=== PATIENT | male | born 1955 | race Caucasian/White ===

== ENCOUNTER 2020-05-22 07:53 | Emergency (ER) | payer BC ==
--- NOTE | 2020-05-22 08:12 | EDM.PDOC ---
ED HPI GENERAL MEDICAL PROBLEM - General Chief Complaint: Neuro Symptoms/Deficits Stated Complaint: WEAKNESS IN RT ARM AND LEG Time Seen by Provider: 05/22/20 08:00 Source of Information: Reports: Patient History Limitations: Reports: No Limitations - History of Present Illness INITIAL COMMENTS - FREE TEXT/NARRATIVE: Patient 64-year-old male patient presents to the ED with chief complaint of weakness felt in his right arm hand and lower extremity. He states he appreciated this after getting up this morning about 0500 hrs. No headache nausea or vomiting no visual acuity changes. He appreciated some weakness or difficulty trying to comb his hair as his hand would not work quite right. Appreciates some weakness on the right side of his leg and seems to list slightly to the left side with walking. No past history of cerebrovascular accident or heart arrhythmias. Currently on no blood thinners. He walked into the emergency room and gait appeared to be normal. He appreciates some mild right-sided facial numbness. Onset: Unknown/Unsure (Woke with symptoms this morning around 0500 hrs.) Duration: Hour(s):, Getting Worse (He feels his symptoms are mildly) Location: Reports: Face (Worse now than they were when he first got up this morning.), Upper Extremity, Right (Right upper extremity particularly his hand not quite obeying), Lower Extremity, Right ( what his brain would like him to do. Right lower extremity) Quality: Reports: Other (Mild right-sided facial) Severity: Mild (arm and leg weakness) Improves with: Reports: None Worsens with: Reports: None Context: Reports: Other (Spontaneous occurrence this morning). Denies: Activity, Exercise, Lifting, Sick Contact, Trauma Associated Symptoms: Reports: Malaise, Weakness. Denies: Confusion, Chest Pain, Cough, cough w sputum, Diaphoresis, Fever/Chills, Headaches, Loss of Appetite, Nausea/Vomiting, Rash, Seizure, Shortness of Breath, Syncope Treatments CAN DRAGGER: Reports: Other (see below) (As described above. None.) - Related Data Allergies Allergy/AdvReac Type Severity Reaction Status Date / Time No Known Allergies Allergy Verified 05/22/20 08:06 Home Meds: Home Meds Clopidogrel Bisulfate [Plavix] 75 mg PO DAILY #20 tablet 05/22/20 [Rx] Rosuvastatin [Crestor] 10 mg PO DAILY #30 tab 05/22/20 [Rx] Sildenafil [Viagra] 1 tab PO ASDIRECTED PRN 05/22/20 [History] Tamsulosin HCl [Flomax] 0.4 mg PO BID 05/22/20 [History] Testosterone 100 gr TOP ASDIRECTED 05/22/20 [History] Thyroid,Pork [[place] Thyroid] 90 mcg PO DAILY 05/22/20 [History] Past Medical History Genitourinary History: Reports: BPH (Tamsulosin was increased to 0.4 mg twice daily about 4 days ago takes 1 in the morning and 1 at bedtime.) - Past Surgical History GI Surgical History: Reports: Hernia, Inguinal (Right inguinal hernia repair in the past) Social & Family History - Tobacco Use Tobacco Use Status *Q: Never Tobacco User - Living Situation & Occupation Living situation: Reports: Occupation: Employed ([employer] ED ROS GENERAL - Review of Systems Review Of Systems: See Below Constitutional: Reports: Weakness (Very mild weakness right arm hand). Denies: Fever, Chills, Malaise, Fatigue ( and leg this morning), Night Sweats, Decreased Appetite, Weight Loss HEENT: Reports: Glasses Respiratory: Reports: No Symptoms Cardiovascular: Reports: No Symptoms. Denies: Chest Pain, Blood Pressure Problem, Claudication, Dyspnea on Exertion, Edema, Lightheadedness, Orthopnea Endocrine: Reports: No Symptoms, Fatigue GI/Abdominal: Reports: No Symptoms. Denies: Abdominal Pain, Constipation, Diarrhea : Reports: Frequency, Other Musculoskeletal: Reports: Back Pain ( Occasional joint pain knees hips low back), Joint Pain (Teary at x2. Known BPH.) Skin: Reports: No Symptoms Neurological: Reports: No Symptoms Psychiatric: Reports: No Symptoms Hematologic/Lymphatic: Reports: No Symptoms Immunologic: Reports: No Symptoms ED EXAM, NEURO - Physical Exam Exam: See Below Exam Limited By: No Limitations General Appearance: Alert, WD/WN, Anxious, Mild Distress, Other Eye Exam: Bilateral Eye: Normal Inspection, PERRL Ears: Normal TMs Throat/Mouth: Normal Inspection, Normal Lips, Normal Oropharynx, Other (Uvula is in the midline.) Head Exam: Atraumatic, Normocephalic Neck: Normal Inspection, Supple, Non-Tender, Full Range of Motion. No: Lymphadenopathy (L), Lymphadenopathy (R) Respiratory/Chest: No Respiratory Distress, Lungs Clear, Normal Breath Sounds, No Accessory Muscle Use, Chest Non-Tender Cardiovascular: Normal Peripheral Pulses, Regular Rate, Rhythm, No Edema, No Gallop, No Murmur, No Rub GI/Abdominal: Normal Bowel Sounds, Soft, Non-Tender, No Organomegaly, No Abnormal Bruit, No Mass, Pelvis Stable. No: Guarding, Rigid, Rebound Neurological: Alert, Normal Dorsiflexion, CN II-XII Intact, Normal Plantar Flexion, Normal Gait, Normal Reflexes, Oriented x 3, Other ( No pronator drift. Very mild weakness appreciated of the right biceps muscle. Has mild ataxia on [id number] assessments on the right side.) DTR: 1+: Bicep (R), Achilles (R), Achilles (L), 2+: Bicep (L), Patella (R), Patella (L) Back Exam: Normal Inspection, Full Range of Motion. No: CVA Tenderness (L), CVA Tenderness (R) Extremities: Normal Inspection, Normal Range of Motion, Non-Tender, No Pedal Edema, Normal Capillary Refill Psychiatric: Anxious Skin Exam: Warm, Dry, Intact, Normal Color, No Rash #1 Interpretation EKG Date: 05/22/20 Time: 08:15 Rhythm: Other (sinus tachycardia) Rate (Beats/Min): 108 [place]: Normal P-Wave: Enlarged (consider Lt atrial hypertrophy.) QRS: Normal ST-T: Normal QT: Prolonged (mildly prolonged.) Course - Vital Signs Last Recorded V/S: Last Vital Signs Temp 36.3 C 05/22/20 08:13 Pulse 90 05/22/20 11:04 Resp 13 05/22/20 11:04 BP 159/90 H 05/22/20 11:04 Pulse Ox 100 05/22/20 11:04 - Orders/Labs/Meds Labs: Laboratory Tests 05/22/20 05/22/20 05/22/20 Range/Units 07:58 08:00 08:00 WBC 5.22 (4.23-9.07) K/mm3 RBC 5.31 (4.63-6.08) M/mm3 Hgb 17.1 D (13.7-17.5) gm/dl Hct 46.9 (40.1-51.0) % MCV 88.3 D (79.0-92.2) fl MCH 32.2 (25.7-32.2) pg MCHC 36.5 H (32.2-35.5) g/dl RDW Std Deviation 41.9 (35.1-43.9) fL Plt Count 152 L (163-337) K/mm3 MPV 9.9 (9.4-12.3) fl Neut % (Auto) 46.2 (34.0-67.9) % Lymph % (Auto) 42.0 (21.8-53.1) % [place] % (Auto) 7.9 (5.3-12.2) % Eos % (Auto) 3.3 (0.8-7.0) Baso % (Auto) 0.6 (0.1-1.2) % Neut # (Auto) 2.42 (1.78-5.38) K/mm3 Lymph # (Auto) 2.19 (1.32-3.57) K/mm3 [place] # (Auto) 0.41 (0.30-0.82) K/mm3 Eos # (Auto) 0.17 (0.04-0.54) K/mm3 Baso # (Auto) 0.03 (0.01-0.08) K/mm3 PT (9.7-12.0) SECONDS INR APTT (21.7-31.4) SECONDS Sodium 141 (136-145) mEq/L Potassium 4.0 (3.5-5.1) mEq/L Chloride 104 (98-107) mEq/L Carbon Dioxide 26 (21-32) mEq/L Anion Gap 15.0 (5-15) BUN 23 H (7-18) mg/dL Creatinine 1.4 H (0.7-1.3) mg/dL Est Cr Clr Drug Dosing 54.01 mL/min Estimated GFR (MDRD) 51 (>60) mL/min BUN/Creatinine Ratio 16.4 (14-18) Glucose 179 H (80-115) mg/dL POC Glucose 183 H (80-115) mg/dL Calcium 9.3 (8.5-10.1) mg/dL Magnesium 1.9 (1.8-2.4) mg/dl Total Bilirubin 0.8 (0.2-1.0) mg/dL AST 20 (15-37) U/L ALT 31 (16-63) U/L Alkaline Phosphatase 62 (46-116) U/L Troponin I < 0.017 (0.00-0.056) ng/mL C-Reactive Protein <0.2 (<1.0) mg/dL Total Protein 7.6 (6.4-8.2) g/dl Albumin 4.0 (3.4-5.0) g/dl Globulin 3.6 gm/dL Albumin/Globulin Ratio 1.1 (1-2) Triglycerides (<150) mg/dL Cholesterol (<200) mg/dL LDL Cholesterol Direct (<100) mg/dL HDL Cholesterol (40-59) mg/dL SARS-CoV-2 RNA (DOM) (NEGATIVE) 05/22/20 05/22/20 05/22/20 Range/Units 08:00 08:03 09:00 WBC (4.23-9.07) K/mm3 RBC (4.63-6.08) M/mm3 Hgb (13.7-17.5) gm/dl Hct (40.1-51.0) % MCV (79.0-92.2) fl MCH (25.7-32.2) pg MCHC (32.2-35.5) g/dl RDW Std Deviation (35.1-43.9) fL Plt Count (163-337) K/mm3 MPV (9.4-12.3) fl Neut % (Auto) (34.0-67.9) % Lymph % (Auto) (21.8-53.1) % [place] % (Auto) (5.3-12.2) % Eos % (Auto) (0.8-7.0) Baso % (Auto) (0.1-1.2) % Neut # (Auto) (1.78-5.38) K/mm3 Lymph # (Auto) (1.32-3.57) K/mm3 [place] # (Auto) (0.30-0.82) K/mm3 Eos # (Auto) (0.04-0.54) K/mm3 Baso # (Auto) (0.01-0.08) K/mm3 PT 10.3 (9.7-12.0) SECONDS INR 0.96 APTT 27.5 (21.7-31.4) SECONDS Sodium (136-145) mEq/L Potassium (3.5-5.1) mEq/L Chloride (98-107) mEq/L Carbon Dioxide (21-32) mEq/L Anion Gap (5-15) BUN (7-18) mg/dL Creatinine (0.7-1.3) mg/dL Est Cr Clr Drug Dosing mL/min Estimated GFR (MDRD) (>60) mL/min BUN/Creatinine Ratio (14-18) Glucose (80-115) mg/dL POC Glucose (80-115) mg/dL Calcium (8.5-10.1) mg/dL Magnesium (1.8-2.4) mg/dl Total Bilirubin (0.2-1.0) mg/dL AST (15-37) U/L ALT (16-63) U/L Alkaline Phosphatase (46-116) U/L Troponin I (0.00-0.056) ng/mL C-Reactive Protein (<1.0) mg/dL Total Protein (6.4-8.2) g/dl Albumin (3.4-5.0) g/dl Globulin gm/dL Albumin/Globulin Ratio (1-2) Triglycerides 98 (<150) mg/dL Cholesterol 211 H (<200) mg/dL LDL Cholesterol Direct 138 H* (<100) mg/dL HDL Cholesterol 57.0 (40-59) mg/dL SARS-CoV-2 RNA (DOM) Negative (NEGATIVE) Meds: Medications Discontinued Medications Generic Name Dose Route Start Last Admin Trade Name Freq PRN Reason Stop Dose Admin Alteplase, Recombinant Confirm 05/22/20 08:28 05/22/20 11:01 Activase Administered 05/22/20 08:29 Not Given Dose 100 mg .ROUTE .STK-MED ONE Aspirin 324 mg 05/22/20 10:14 05/22/20 10:57 Aspirin PO 05/22/20 10:15 324 mg ONETIME ONE Administration Clopidogrel Bisulfate 75 mg 05/22/20 10:15 05/22/20 10:58 Plavix PO 05/22/20 10:16 75 mg ONETIME ONE Administration Sodium Chloride 100 mls @ 75 mls/hr 05/22/20 09:00 Normal Saline IV ASDIRECTED NABIL Iopamidol 100 ml 05/22/20 08:47 Isovue-370 (76%) IVPUSH 05/22/20 08:48 ONETIME ONE Sodium Chloride 10 ml 05/22/20 08:47 Saline Flush FLUSH ONETIME PRN IV FLUSH - Radiology Interpretation Free Text/Narrative:: 64-year-old male presents to the ED with very mild signs of Possible stroke. He states since he awoke at 0500 hrs. this morning he felt that his right hand was not cooperating or obeying his brain commands. Had difficulty combing his hair with at home this morning. No trouble swallowing. No visual acuity changes. Feels some numbness tingling and weakness in his right hand and arm. Feels on walking that there may be some weakness in his right upper extremity with him listing slightly to the left with walking. Symptoms are slowly getting worse according to the patient. Exam reveals mild ataxia on [id number]-[id number]-[id number] assessment on the right side. Clinically has slightly decreased strength in the right upper extremity as compared to the left. His NIH stroke scale is a 1 . Therefore symptoms at this time are very subtle and not incapacitating. Plan CT head to be done. - Re-Assessments/Exams Free Text/Narrative Re-Assessment/Exam: 05/22/20 08:25: CT head reveals small small hypodensities at the basal ganglia consistent with remote lacunar infarcts with no acute intra-axial or extra-axial hemorrhage appreciated.. No ventriculomegaly. Sinuses appear clear no air- fluid levels. Vasculature suggest increased attenuation to the left M1 segment worrisome for thrombosis or atherosclerotic disease. I did speak with neurologist at [facility] in [place]. It was his suggestion to proceed with CT angiogram of head and neck to make sure there is no thrombus that would benefit from interventional radiology. We both agree that his current symptoms are very mild and risks of thrombolytics at this time are felt to outweigh benefit. We will therefore proceed with CT angiogram of head and neck. Patient has been so advised. Blood pressure has come down to 149/86. Heart rate is 95. 05/22/20 09:50 CT angiogram of the neck has been completed. The right common carotid artery shows no stenosis and no dissection or occlusion. Right internal carotid artery no stenosis of the extracranial segment. There is no dissection or occlusion. Right external carotid artery similarly no occlusion or stenosis of the origin. Right vertebral artery no stenosis no dissection or occlusion. Left common carotid artery no stenosis no dissection or occlusion. Left internal carotid artery mild atherosclerotic disease at the proximal left internal carotid artery causing less than 50% stenosis. Left external carotid artery no occlusion or stenosis at the origin left vertebral artery no stenosis no dissection or occlusion. Bones show multilevel degenerative disc disease in the cervical spine. CT angiogram head is now available. The right internal carotid artery shows intracranial segment is patent with no significant stenosis or occlusion. No aneurysm. Right middle cerebral artery no occlusion or significant stenosis no aneurysm. Right anterior cerebral artery no occlusion or significant stenosis no aneurysm. Left internal carotid artery intracranial segment is patent with no significant stenosis no aneurysm left middle cerebral artery minimal atherosclerotic disease and irregularity at the proximal left M1 segment without significant stenosis. No occlusion or significant stenosis no aneurysm. In the posterior circulation there is no occlusion of the right vertebral artery or significant stenosis or aneurysm. Similarly left left vertebral artery shows no occlusion or significant stenosis or aneurysm the basilar artery shows no occlusion or significant stenosis or aneurysm. The right posterior cerebral artery no occlusion or significant stenosis or aneurysm and similar findings in the left posterior cerebral artery. Head shows multiple small hypodensities at the basal ganglia consistent with remote lacunar infarcts. Cerebral ventricles normal no ventriculomegaly paranasal sinuses are normal. Patient will therefore be placed on low-dose Crestor 10 mg once daily. Goal will be to reduce his LDL to less than 70. He will be placed on aspirin 325 mg twice daily with Plavix 75 mg once daily for the next 3 weeks and then continue aspirin 162 mg twice daily to prevent further stroke. 05/22/20 09:57 White count is 5.22 with 46.2% neutrophils on the auto differential. Hemoglobin is 17.1 with hematocrit of 46.9 suggesting mild hemoconcentration. Platelet counts 152,000 slightly low. PT is 10.3 with an INR of 0.96 and a PTT of 27.5. Sodium 141 with a potassium of 4.0 chloride 104 with a bicarb of 26. Anion gap is 15.0. BUN is 23 with a creatinine of 1.4 GFR is 51. Glucose 179 calcium 9.3 magnesium 1.9 total bilirubin is 0.8 AST is 20 with an ALT of 31 and alk phos days of 62 troponin I was less than 0.017 C- reactive protein less than 0.2 total protein 7.6 with an albumin fraction of 4.0 triglycerides normal at 98 total cholesterol elevated at 211 LDL cholesterol 138 HDL cholesterol 57.0 05/22/20 10:16 He will be given the initial dose of aspirin 324 mg p.o. now and Plavix 75 mg now. Prescription written for Crestor 10 mg once daily. Blood pressure seems to be under good control and with recent increase in his Flomax it has have some alpha blockade which will lower his pressure further. He will be on Plavix 75 mg daily for the next 3 weeks. He will be on 325 mg aspirin twice daily during that timeframe as well and after that it will be cut down to a half an aspirin or Halfprin 162 mg twice daily. Advised to follow-up with his primary care physician in approximately 6 weeks time. Of note his neurological symptoms have completely dissipated at this time making his diagnosis a transient ischemic attack. Advised that he should have carotid artery ultrasounds on a yearly basis. Departure - Departure Time of Disposition: 10:17 Disposition: Home, Self-Care 01 Condition: Fair Clinical Impression: TIA (transient ischemic attack), Hypercholesterolemia - Discharge Information *PRESCRIPTION DRUG MONITORING PROGRAM REVIEWED*: Not Applicable *COPY OF PRESCRIPTION DRUG MONITORING REPORT IN PATIENT JOHN: Not Applicable Prescriptions: Rosuvastatin [Crestor] 10 mg PO DAILY #30 tab Clopidogrel Bisulfate [Plavix] 75 mg PO DAILY #20 tablet Instructions: Transient Ischemic Attack, [id number] Referrals: PCP,Not In Area [Primary Care Provider] - Forms: ED Department Discharge, ED Return to Work/School Form Additional Instructions: Evaluation in the emergency room this morning in regards to acute development of neurological symptoms involving your right hand arm and leg with some weakness or numbness in your right hemiface as well this morning. Symptoms seem to be present when he awoke around 0500 hrs. this morning. He seemed to slowly progress and get a little more severe over the ensuing 2 hours. You were seen in the ED and a stroke alert was called. Immediate CT scan of the brain was carried out which did not show any bleeding in the brain but did suggest that there was an area of possible poor circulation to a branch of the left middle cerebral artery which would correlate with the right upper extremity weakness. Very minimal weakness was appreciated on examination of your right arm and you had a little bit of ataxia looking at the right [id number] exam. Subsequently CT angiogram of the head and neck has been performed and it does not show any significant blockage of any of the arteries in your brain or neck at this time. There is less than 50% occlusion of the carotid arteries which is normal for her age. It therefore appears that you have suffered a transient ischemic attack which was a miniature stroke likely due to a small piece of plaque breaking off from inside blood vessels on the left side of the neck or brain. This caused a transient blockage of blood flow to portions of your brain causing neurologic nonfocal symptoms. Subsequently this seems to have is resolved completely. In an effort to prevent a similar occurrence it is suggested that you take a full Mauro aspirin 325 mg twice daily for the next 3 weeks in combination with Plavix 75 mg once daily in the morning. First tablets were given in the ED today. You will need a second dose of aspirin later today. Plavix which should be started tomorrow morning. After 3 weeks you can cut down the aspirin to a half an aspirin which we call Halfprin 162 mg tablet twice daily and should remain on this medication. Also goal is to lower your total cholesterol which was 211 today with your LDL cholesterol being 130. The goal would be to lower your bad cholesterol or LDL cholesterol to less than 70 to try and prevent any further blockage of the vessels and further strokes in the future. Suggest starting medication Crestor 10 mg once daily. Suggest follow- up with your personal care physician within the next 4 weeks and to make sure your blood pressure stays under 135 on the top number and preferably 85 or less on the bottom number. You should have a carotid ultrasound done on a yearly basis to make sure there is no blockage development that would require or benefit from surgery. Sepsis Event Note (ED) - Focused Exam Vital Signs: Vital Signs Temp Pulse Resp BP Pulse Ox 05/22/20 11:04 90 13 159/90 H 100 05/22/20 08:13 36.3 C 124 H 16 170/90 H 99
[2020-05-22] MEDS ORDERED: Sodium Chloride 0.9% 10 ML Syringe FLUSH PRN (08:47)
[2020-05-22] MEDS ORDERED: Iopamidol 755 Mg/ML 100 ML Bottle IVPUSH ONE (08:47)
--- NOTE | 2020-05-22 08:50 | CT ---
Addendum created by Elliot Hernadez MD on 05/22/2020 9:19 AM Central Time ([place] & [place]): This report contains findings that may be critical to patient care. The findings were verbally communicated via telephone conference with KRISTINE VARGAS at 05/22/2020 9:19 AM [facility]. The findings were acknowledged and understood. Initial Report created on 05/22/2020 9:17 AM Central Time ([place] & [place]): PROCEDURE INFORMATION: Exam: CT Head Without Contrast Exam date and time: 05/22/2020 8:02 AM Age: 64 years old Clinical indication: Weakness, extremity; Right; Patient HX: RT arm/leg weakness x2 hours TECHNIQUE: Imaging protocol: Computed tomography of the head without contrast. Radiation optimization: All CT scans at this facility use at least one of these dose optimization techniques: automated exposure control; mA and/or kV adjustment per patient size (includes targeted exams where dose is matched to clinical indication); or iterative reconstruction. Other technique: STROKE PROTOCOL was implemented. COMPARISON: No relevant prior studies available. FINDINGS: Brain: Multiple small hypodensities at the basal ganglia consistent with remote lacunar infarctions. No acute intra-axial or extra-axial hemorrhage appreciated. Cerebral ventricles: No ventriculomegaly. Bones/joints: Unremarkable. No acute fracture. Paranasal sinuses: Visualized sinuses are unremarkable. No fluid levels. Mastoid air cells: Visualized mastoid air cells are well aerated. Vasculature: Increased attenuation to the left M1 segment worrisome for thrombosis or atherosclerotic disease. Soft tissues: Unremarkable. IMPRESSION: 1. Multiple small hypodensities at the basal ganglia consistent with remote lacunar infarctions. 2. No acute intra-axial or extra-axial hemorrhage appreciated. 3. Increased attenuation to the left M1 segment worrisome for thrombosis or atherosclerotic disease. ASSESSMENT: ASPECTS ([place] Stroke Program Early CT Score) is 10. COMMENTS: If the symptoms that lead to this examination persist or worsen, or there is concern for CVA (which may not manifest on CT for the first 24-48 hours), close interval follow-up MRI (or followup CT if the patient cannot undergo MRI evaluation) could provide additional information; only if clinically indicated. Thank you for allowing us to participate in the care of your patient. Dictated and Authenticated by: Elliot Hernadez MD 05/22/2020 9:17 AM Central Time ([place] & [place]) [facility]
--- NOTE | 2020-05-22 08:51 | CR ---
PROCEDURE INFORMATION: Exam: XR Chest, 1 View Exam date and time: 05/22/2020 8:08 AM Age: 64 years old Clinical indication: Other: CVA TECHNIQUE: Imaging protocol: XR of the chest Views: 1 view. COMPARISON: No relevant prior studies available. FINDINGS: Lungs: Unremarkable. No consolidation. Pleural space: Unremarkable. No pleural effusion. No pneumothorax. Heart/Mediastinum: Unremarkable. No cardiomegaly. Bones/joints: Unremarkable. IMPRESSION: No acute findings. Thank you for allowing us to participate in the care of your patient. Dictated and Authenticated by: Elliot Hernadez MD 05/22/2020 9:18 AM Central Time ([place] & [place]) [facility]
[2020-05-22] MEDS ORDERED: Sodium Chloride 0.9% 100 ML IV SCH (09:00)
[2020-05-22] MEDS ORDERED: Aspirin 81 MG Tab.Chew PO ONE (10:14)
[2020-05-22] MEDS ORDERED: Clopidogrel 75 MG Tab PO ONE (10:15)
--- NOTE | 2020-05-22 10:35 | CT ---
PROCEDURE INFORMATION: Exam: CT Angiography Neck Without And With Contrast Exam date and time: 05/22/2020 9:07 AM Age: 64 years old Clinical indication: Patient HX: RT arm / leg weakness TECHNIQUE: Imaging protocol: Computed tomographic angiography of the neck without and with intravenous contrast. 3D rendering (Not supervised by radiologist): MIP and/or 3D reconstructed images were created by the technologist. Radiation optimization: All CT scans at this facility use at least one of these dose optimization techniques: automated exposure control; mA and/or kV adjustment per patient size (includes targeted exams where dose is matched to clinical indication); or iterative reconstruction. Contrast material: ISOVUE 370; Contrast volume: 100 ml; Contrast route: INTRAVENOUS (IV); COMPARISON: No relevant prior studies available. FINDINGS: Right common carotid artery: No stenosis. No dissection or occlusion. Right internal carotid artery: No stenosis of the extracranial segment. No dissection or occlusion. Right external carotid artery: No occlusion or stenosis of the origin. Right vertebral artery: No stenosis. No dissection or occlusion. Left common carotid artery: No stenosis. No dissection or occlusion. Left internal carotid artery: Mild atherosclerotic disease at the proximal left internal carotid artery causing less than 50% stenosis. Left external carotid artery: No occlusion or stenosis of the origin. Left vertebral artery: No stenosis. No dissection or occlusion. Bones/joints: There is multilevel degenerative disc disease. Soft tissues: Normal. No significant soft tissue swelling. IMPRESSION: Mild atherosclerotic disease at the proximal left internal carotid artery causing less than 50% stenosis. REFERENCES: NASCET CRITERIA. The degree of internal carotid artery stenosis is based on NASCET criteria. Normal is no stenosis. Mild is less than 50% stenosis. Moderate is 50-69% stenosis. Severe is 70% to 99% stenosis. Total occlusion is no detectable patent lumen. Thank you for allowing us to participate in the care of your patient. Dictated and Authenticated by: Elliot Hernadez MD 05/22/2020 10:45 AM Central Time ([place] & [place]) [facility]
--- NOTE | 2020-05-22 10:41 | CT ---
PROCEDURE INFORMATION: Exam: CT Angiography Head Without And With Contrast Exam date and time: 05/22/2020 9:07 AM Age: 64 years old Clinical indication: Patient HX: RT sided weakness TECHNIQUE: Imaging protocol: Computed tomographic angiography of the head without and with intravenous contrast. 3D rendering (Not supervised by radiologist): MIP and/or 3D reconstructed images were created by the technologist. Radiation optimization: All CT scans at this facility use at least one of these dose optimization techniques: automated exposure control; mA and/or kV adjustment per patient size (includes targeted exams where dose is matched to clinical indication); or iterative reconstruction. Contrast material: ISOVUE 370; Contrast volume: 100 ml; Contrast route: INTRAVENOUS (IV); Other technique: STROKE PROTOCOL was implemented. COMPARISON: CT Head wo Cont 05/22/2020 8:02 AM FINDINGS: ANTERIOR CIRCULATION: Right internal carotid artery: Intracranial segment is patent with no significant stenosis or occlusion. No aneurysm. Right middle cerebral artery: No occlusion or significant stenosis. No aneurysm. Right anterior cerebral artery: No occlusion or significant stenosis. No aneurysm. Left internal carotid artery: Intracranial segment is patent with no significant stenosis. No aneurysm. Left middle cerebral artery: Minimal atherosclerotic disease and irregularity at the proximal left M1 segment without significant stenosis. Left anterior cerebral artery: No occlusion or significant stenosis. No aneurysm. POSTERIOR CIRCULATION: Right vertebral artery: No occlusion or significant stenosis. No aneurysm. Left vertebral artery: No occlusion or significant stenosis. No aneurysm. Basilar artery: No occlusion or significant stenosis. No aneurysm. Right posterior cerebral artery: No occlusion or significant stenosis. No aneurysm. Left posterior cerebral artery: No occlusion or significant stenosis. No aneurysm. HEAD: Brain: Multiple small hypodensities at the basal ganglia consistent with remote lacunar infarctions. Cerebral ventricles: Normal. No ventriculomegaly. Bones/joints: Unremarkable. No acute fracture. Paranasal sinuses: Visualized sinuses are normal. No fluid levels. Mastoid air cells: Visualized mastoids are normal. No mastoid effusion. Soft tissues: Unremarkable. IMPRESSION: 1. Multiple small hypodensities at the basal ganglia consistent with remote lacunar infarctions. 2. Minimal atherosclerotic disease and irregularity at the proximal left M1 segment without significant stenosis. ASSESSMENT: ASPECTS ([place] Stroke Program Early CT Score) is 10. Thank you for allowing us to participate in the care of your patient. Dictated and Authenticated by: Elliot Hernadez MD 05/22/2020 10:48 AM Central Time ([place] & [place]) [facility]
== END 2020-05-22 11:11 | disposition home or self-care (01) ==
LOC: JD.ED 07:53
DX: G45.9 Transient cerebral ischemic attack, unspecified (principal); E78.00 Pure hypercholesterolemia, unspecified; Z20.828 Contact with and (suspected) exposure to other viral communicable diseases; N40.0 Benign prostatic hyperplasia without lower urinary tract symptoms; Z79.899 Other long term (current) drug therapy
CPT/HCPCS: 36415; 70450; 70496; 70498; 71045; 80053; 82465; 82962; 83718; 83721; 83735; 84478; 84484; 85025; 85610; 85730; 86140; 87635; 93005; 99285; A9270; U0002

== ENCOUNTER 2020-08-26 20:54 | Emergency (ER) | payer BC ==
[2020-08-26] MEDS ORDERED: Sodium Chloride 0.9% 10 ML Syringe FLUSH PRN (21:36)
[2020-08-26] MEDS ORDERED: Ondansetron 4 MG/2 ML SDV IVPUSH ONE (21:36)
[2020-08-26] MEDS ORDERED: Sodium Chloride 0.9% 1,000 ML IV SCH (21:45)
--- NOTE | 2020-08-26 22:28 | EDM.PDOC ---
ED HPI GENERAL MEDICAL PROBLEM - General Chief Complaint: Gastrointestinal Problem Stated Complaint: NAUSEA/TEMP/HEARTBURN Time Seen by Provider: 08/26/20 21:25 Source of Information: Reports: Patient, RN Notes Reviewed - History of Present Illness INITIAL COMMENTS - FREE TEXT/NARRATIVE: 65 yr old male with onset of nausea, chills, mild heartburn type feeling up into chest, generalized myalgias this afternoon about 6 hrs ago. 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 No known covid exposure for either of them. He does not have pain into his back, shoulder or arm. No cough or difficulty breathing. Epigastric Pain Score (Numeric/FACES): 5 - Related Data Allergies Allergy/AdvReac Type Severity Reaction Status Date / Time No Known Allergies Allergy Verified 08/26/20 21:18 Home Meds: Home Meds Clopidogrel Bisulfate [Plavix] 75 mg PO DAILY #20 tablet 05/22/20 [Rx] Rosuvastatin [Crestor] 10 mg PO DAILY #30 tab 05/22/20 [Rx] Sildenafil [Viagra] 1 tab PO ASDIRECTED PRN 05/22/20 [History] Tamsulosin HCl [Flomax] 0.4 mg PO BID 05/22/20 [History] Testosterone 100 gr TOP ASDIRECTED 05/22/20 [History] Thyroid,Pork [[place] Thyroid] 90 mcg PO DAILY 05/22/20 [History] Past Medical History HEENT History: Reports: Impaired Vision Cardiovascular History: Reports: None Respiratory History: Reports: None Gastrointestinal History: Reports: None Genitourinary History: Reports: BPH Musculoskeletal History: Reports: None Neurological History: Reports: TIA Psychiatric History: Reports: None Endocrine/Metabolic History: Reports: Hypothyroidism Hematologic History: Reports: None Immunologic History: Reports: None Oncologic (Cancer) History: Reports: None Dermatologic History: Reports: None - Infectious Disease History Infectious Disease History: Reports: Chicken Pox, Mumps - Past Surgical History Head Surgeries/Procedures: Reports: None HEENT Surgical History: Reports: Adenoidectomy, Oral Surgery, Tonsillectomy GI Surgical History: Reports: Hernia, Inguinal Other Male Surgeries/Procedures: takes flomax BID for stream Musculoskeletal Surgical History: Reports: None Social & Family History - Family History Family Medical History: No Pertinent Family History HEENT: Reports: None Cardiac: Reports: None GI: Reports: None : Reports: None OBGYN: Reports: None Musculoskeletal: Reports: None Neurological: Reports: None Psychiatric: Reports: None Endocrine/Metabolic: Reports: Diabetes, type II Hematologic: Reports: None Immunologic: Reports: None Oncologic: Reports: Lung - Tobacco Use Tobacco Use Status *Q: Never Tobacco User Second Hand Smoke Exposure: No - Caffeine Use Caffeine Use: Reports: None - Recreational Drug Use Recreational Drug Use: No - Living Situation & Occupation Living situation: Reports: Occupation: Employed ([employer]) ED ROS GENERAL - Review of Systems Review Of Systems: See Below Constitutional: Reports: Fever, Chills HEENT: Reports: No Symptoms Respiratory: Denies: Shortness of Breath, Cough Cardiovascular: Reports: Chest Pain (mild pressure feeling lower mid chest) GI/Abdominal: Reports: Abdominal Pain (mild heart burn type discomfort upper mid abd), Nausea. Denies: Diarrhea, Vomiting Musculoskeletal: Denies: Shoulder Pain, Arm Pain, Back Pain Skin: Reports: No Symptoms Neurological: Reports: No Symptoms ED EXAM, GENERAL - Physical Exam Exam: See Below General Appearance: Alert Head: Atraumatic Neck: Supple Respiratory/Chest: No Respiratory Distress, Lungs Clear, Normal Breath Sounds Cardiovascular: Tachycardia GI/Abdominal: Soft, Tender (mild tenderness upper mid abd, lower abd soft and nontender). No: Guarding, Rebound Extremities: Normal Inspection. No: Pedal Edema, Leg Pain Neurological: Alert, Oriented, No Motor/Sensory Deficits Skin Exam: Warm, Dry, Normal Color, No Rash #1 Interpretation EKG Date: 08/26/20 Rhythm: Other (sinus tach) Rate (Beats/Min): 107 [place]: Normal P-Wave: Present QRS: Normal ST-T: Normal QT: Normal Course - Vital Signs Last Recorded V/S: Last Vital Signs Temp 98.2 F 08/26/20 23:06 Pulse 95 08/26/20 23:06 Resp 16 08/26/20 23:06 BP 136/88 08/26/20 23:06 Pulse Ox 100 08/26/20 23:06 - Orders/Labs/Meds Orders: Active Orders 24 hr Category Date Time Status Peripheral IV Insertion Adult [OM.PC] Stat Oth 08/26/20 21:35 Ordered Labs: Laboratory Tests 08/26/20 08/26/20 Range/Units 21:53 21:55 Troponin I < 0.017 (0.00-0.056) ng/mL SARS-CoV-2 RNA (DOM) Negative (NEGATIVE) Meds: Medications Discontinued Medications Generic Name Dose Route Start Last Admin Trade Name Freq PRN Reason Stop Dose Admin Al Hydroxide/Mg Hydroxide 30 0 ml 08/26/20 22:54 08/26/20 23:05 ml/ Lidocaine HCl 15 ml PO 08/26/20 22:55 45 ml ONETIME ONE Administration Sodium Chloride 1,000 mls @ 999 mls/hr 08/26/20 21:45 08/26/20 21:48 Normal Saline IV 999 mls/hr ONETIME NABIL Administration Ondansetron HCl 4 mg 08/26/20 21:36 08/26/20 21:47 Zofran IVPUSH 08/26/20 21:37 4 mg ONETIME ONE Administration Sodium Chloride 10 ml 08/26/20 21:36 08/26/20 21:48 Saline Flush FLUSH 10 ml ASDIRECTED PRN Administration Keep Vein Open - Re-Assessments/Exams Free Text/Narrative Re-Assessment/Exam: 08/26/20 23:11 EKG no acute changes. trop neg. covid neg. Discharge instr. as documented. Departure - Departure Time of Disposition: 22:55 Disposition: Home, Self-Care 01 Condition: Fair Clinical Impression: Viral syndrome, Atypical chest pain - Discharge Information Instructions: Nonspecific Chest Pain, Adult, Viral Illness, Adult Referrals: Delta Gill MD [Primary Care Provider] - Forms: ED Department Discharge Additional Instructions: Rest. Clear liquids until tomorrow afternoon, than very careful bland diet as tolerated. Your covid test was negative. However if your symptoms persist more than 2 or 3 days or if you develop cough or difficulty breathing get yourself retested. Follow up clinic as neeed. Return to ED as needed if symptoms worsening in any way. Sepsis Event Note (ED) - Evaluation Sepsis Screening Result: No Definite Risk - Focused Exam Vital Signs: Vital Signs Temp Pulse Resp BP Pulse Ox 08/26/20 23:06 98.2 F 95 16 136/88 100 08/26/20 21:15 99.6 F 111 H 16 153/87 H 96 - My Orders Last 24 Hours: My Active Orders 08/26/20 21:35 Peripheral IV Insertion Adult [OM.PC] Stat - Assessment/Plan Last 24 Hours: My Active Orders 08/26/20 21:35 Peripheral IV Insertion Adult [OM.PC] Stat
[2020-08-26] MEDS ORDERED: Alum Hydrox/Mag Hydrox/Simeth 30 ML, Lidocaine 2% 15 ML PO ONE ×2 (22:54)
== END 2020-08-26 23:06 | disposition home or self-care (01) ==
LOC: JD.ED 20:54
DX: B34.9 Viral infection, unspecified (principal); R07.89 Other chest pain; N40.0 Benign prostatic hyperplasia without lower urinary tract symptoms; E03.9 Hypothyroidism, unspecified; Z86.73 Personal history of transient ischemic attack (TIA), and cerebral infarction without residual deficits; Z20.822 Contact with and (suspected) exposure to COVID-19; Z79.899 Other long term (current) drug therapy; Z79.02 Long term (current) use of antithrombotics/antiplatelets
CPT/HCPCS: 36415; 84484; 87635; 93005; 96374; 99285; A9270; J2405; J7030; 93010; 99284; U0002